=== PATIENT | female | born 1950 | race Caucasian/White ===

== ENCOUNTER → 2018-06-05 | Outpatient (CLI) | payer OTHER | LOC: BHFA 09:00 | PROVIDERS: ATTEND Internal Medicine Cardiovascular Disease | DX: R06.02 Shortness of breath (principal) | CPT/HCPCS: 78452; 93017; A9500; J2785 ==

== ENCOUNTER 2019-02-03 09:37 | Emergency (ER) | payer OTHER ==
[2019-02-03] MEDS ORDERED: NS 1,000 ML IV ONE (09:56)
[2019-02-03] MEDS ORDERED: ONDANSETRON 4 MG/2 ML VIAL IVP ONE (09:56)
--- NOTE | 2019-02-03 10:00 | EDPHY ---
H & P Stated Complaint: r facial numbness, weakness, nausea, dizziness Time Seen by Provider: 02/03/19 09:46 HPI/ROS: CHIEF COMPLAINT: Generalized weakness, dizziness, nausea HISTORY OF PRESENT ILLNESS: The patient is a 69-year-old female comes to the emergency department complaining that she has felt dizzy and weak for the last several days and that today her symptoms seem to have worsened. She describes the dizziness as a spinning sensation and states that she has trouble walking. She states that it is worse with position changes an turning her head side to side. No presyncope. No headache. No fever. No trauma. Today she states that her symptoms are worse and she feels generally weak as well. She also developed some tingling to her right cheek over last 24 hr. No speech deficits. No facial droop. No focal extremity weakness. No pain. She did have a Botox injection several months ago for occipital neuralgia on on the right side of her head. 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 Severity: Moderate Modifying factors: None REVIEW OF SYSTEMS: Constitutional: denies: chills, fever, recent illness, recent injury EENTM: denies: blurred vision, double vision, nose congestion Respiratory: denies: cough, shortness of breath Cardiac: denies: chest pain, irregular heart rate, lightheadedness, palpitations Gastrointestinal/Abdominal: denies: abdominal pain, diarrhea, nausea, vomiting, blood streaked stools Genitourinary: denies: dysuria, frequency, hematuria, pain Musculoskeletal: See HPI Skin: denies: lesions, rash, jaundice, bruising Neurological: See HPI denies: headache Hematologic/Lymphatic: denies: blood clots, easy bleeding, easy bruising Immunologic/allergic: denies: HIV/AIDS, transplant 10 systems reviewed and negative except as noted EXAM: GENERAL: Well-appearing, well-nourished and in no acute distress. HEAD: Atraumatic, normocephalic. EYES: Pupils equal round and reactive to light, extraocular movements intact, sclera anicteric, conjunctiva are normal. Minimal ptosis of right eye which is baseline. Patient has some trouble tracking my finger with her eyes but no visible nystagmus and is able to look in all directions with prompting ENT: TMs normal, nares patent, oropharynx clear without exudates. Moist mucous membranes. NECK: Normal range of motion, supple without lymphadenopathy or JVD. LUNGS: Breath sounds clear to auscultation bilaterally and equal. No wheezes rales or rhonchi. HEART: Regular rate and rhythm without murmurs, rubs or gallops. ABDOMEN: Soft, nontender, normoactive bowel sounds. No guarding, no rebound. No masses appreciated. BACK: No CVA tenderness, no spinal tenderness, step-offs or deformities EXTREMITIES: Normal range of motion, no pitting or edema. No clubbing or cyanosis. NEUROLOGICAL: Cranial nerves II through XII grossly intact. Normal speech, normal gait. 5/5 strength, normal movement in all extremities, normal sensation , normal reflexes NIH stroke score 0. No pronator drift. Normal [id number] and [id number]. PSYCH: Normal mood, normal affect. SKIN: Warm, dry, normal turgor, no visible rashes or lesions. Source: Patient Exam Limitations: No limitations - Personal History Current Tetanus/Diphtheria Vaccine: Yes Current Tetanus Diphtheria and Acellular Pertussis (TDAP): Yes - Medical/Surgical History Hx Asthma: No Hx Chronic Respiratory Disease: No Hx Diabetes: No Hx Cardiac Disease: Yes Hx Renal Disease: No Hx Cirrhosis: No Hx Alcoholism: No Hx HIV/AIDS: No Hx Splenectomy or Spleen Trauma: No Other PMH: HTN, GERD, IBS, depression, fibromyalgia, hysterectomy, partial thyroidectomy, cholecystectomy, 2 c-sections. occipital neuralgia - Family History Significant Family History: No pertinent family hx - Social History Smoking Status: Never smoked Alcohol Use: None Constitutional: Initial Vital Signs Temperature (C) 36.7 C 02/03/19 09:48 Heart Rate 65 02/03/19 09:48 Respiratory Rate 18 02/03/19 09:48 Blood Pressure 169/94 H 02/03/19 09:48 O2 Sat (%) 99 02/03/19 09:48 O2 Delivery Mode Nasal Cannula O2 (L/minute) 2 Allergies/Adverse Reactions: prednisone [Prednisone] Allergy (Severe, Verified 07/26/15 11:08) TACHYCARDIA/HYPERTENSION morphine [Morphine] Allergy (Verified 07/26/15 11:08) ALL STERIODS Allergy (Severe, Uncoded 06/02/13 10:38) TACHYCARDIA/HYPERTENSION Home Medications: Medication Instructions Recorded Levothyroxine [Synthroid 75 mcg 75 mcg PO SUTUTHSA 10/28/14 (*)] Levothyroxine [Synthroid 88 mcg 88 mcg PO MWF 10/28/14 (*)] Lisinopril/Hctz 10/12.5 mg 1 ea PO DAILY 10/28/14 [Zestoretic/Prinzide 10/12.5MG (*)] Nortriptyline HCl [Pamelor 25 mg 25 mg PO HS 10/28/14 (*)] Pravastatin Sodium [Pravachol] 40 mg PO HS 10/28/14 Venlafaxine Xr [Effexor Xr 75MG 75 mg PO DAILY 10/28/14 (*)] Venlafaxine Xr [Effexor Xr] 150 mg PO DAILY 10/28/14 Gabapentin [Neurontin 300 MG (*)] 1,200 mg PO BID 07/26/15 LORazepam [Ativan 1 mg (RX)] 1 mg PO Q6-8PRN PRN #10 tab 02/03/19 Medical Decision Making - Diagnostics EKG Interpretation: An EKG obtained and was read and documented in trace view. Please see trace view for full reading and report. Sinus rhythm, no acute ischemic changes Imaging Results: Imaging Impressions Brain MRI 02/03/19 09:56 Impression: 1. Empty pituitary sella. 2. Progression of nonspecific hyperintense T2/FLAIR signal abnormalities in the white matter of bilateral cerebral hemispheres. Differential diagnosis includes microvascular ischemic disease, post-infectious/post-inflammatory sequela, atypical demyelinating disease, or migraine-related sequela. 3. No acute infarct, hemorrhage, hydrocephalus, mass effect, or herniation. If symptoms worsen, additional imaging may be necessary. Findings discussed with Jesús Mckinley M.D. at 12:07 hour, 02/03/2019. Imaging: Discussed imaging studies w/ will call clerk Radiologist ED Course/Re-evaluation: Patient feels generally weak and dizzy and nauseous. No abdominal pain or tenderness. No focal weakness or deficits although she does have some trouble tracking with her extraocular muscles but she is able to look in all directions when encouraged. No visible nystagmus. Quite anxious. 12:15 p.m. We discussed the patient's lab work, EKG and MRI which are all reassuring. She is feeling somewhat better and is no longer nauseous. She still feels slightly dizzy and spinning sensation. NIH score remains 0. Will treat with Ativan and observe. 1:15 p.m. the patient is feeling much better after Ativan although she is sleepy. She is no longer vertiginous when sitting up or turning her head. No nystagmus on exam. She is doing better with her eye exam. Her lab work and imaging is all reassuring. She is eager to go home. I will have her follow up with ENT. She does not have any focal deficits at this time. Differential Diagnosis: Partial list of the Differential diagnosis considered include but were not limited to; anxiety, benign positional vertigo, ischemia and although unlikely based on the history and physical exam, I also considered infection, MS, tumor, acute coronary disease. I discussed these differential diagnoses and the plan with the [patient] as well as the usual and expected course. The [patient understands] that the diagnosis is provisional and that in medicine we are not always correct and that further workup is often warranted. Usual and customary warnings were given. All of the [patient's] questions were answered. The [ patient was] instructed to return to the emergency department should the symptoms at all worsen or return, otherwise to followup with the physician as we discussed. - Data Points Laboratory Results: Laboratory Results 02/03/19 09:50 02/03/19 09:50 02/03/19 02/03/19 02/03/19 10:04 09:50 09:50 WBC RBC Hgb Hct MCV MCH MCHC RDW Plt Count MPV Neut % (Auto) Lymph % (Auto) Bartholomew % (Auto) Eos % (Auto) Baso % (Auto) Nucleat RBC Rel Count Absolute Neuts (auto) Absolute Lymphs (auto) Absolute Monos (auto) Absolute Eos (auto) Absolute Basos (auto) Absolute Nucleated RBC Immature Gran % Immature Gran # PT 11.5 SEC L SEC (12.0-15.0) INR 0.87 (0.83-1.16) Sodium 139 mEq/L mEq/L (135-145) Potassium 4.0 mEq/L mEq/L (3.5-5.2) Chloride 104 mEq/L mEq/L (97-110) Carbon Dioxide 27 mEq/l mEq/l (22-31) Anion Gap 8 mEq/L mEq/L (6-14) BUN 15 mg/dL mg/dL (7-23) Creatinine 0.6 mg/dL mg/dL (0.6-1.0) Estimated GFR > 60 Glucose 92 mg/dL mg/dL (70-100) Calcium 9.8 mg/dL mg/dL (8.5-10.4) POC Troponin I 0.00 ng/mL ng/mL (0.00-0.08) 02/03/19 09:50 WBC 4.26 10^3/uL 10^3/uL (3.80-9.50) RBC 4.53 10^6/uL 10^6/uL (4.18-5.33) Hgb 14.1 g/dL g/dL (12.6-16.3) Hct 41.6 % % (38.0-47.0) MCV 91.8 fL fL (81.5-99.8) MCH 31.1 pg pg (27.9-34.1) MCHC 33.9 g/dL g/dL (32.4-36.7) RDW 12.9 % % (11.5-15.2) Plt Count 258 10^3/uL 10^3/uL (150-400) MPV 9.9 fL fL (8.7-11.7) Neut % (Auto) 62.0 % % (39.3-74.2) Lymph % (Auto) 26.1 % % (15.0-45.0) Bartholomew % (Auto) 7.7 % % (4.5-13.0) Eos % (Auto) 3.1 % % (0.6-7.6) Baso % (Auto) 0.9 % % (0.3-1.7) Nucleat RBC Rel Count 0.0 % % (0.0-0.2) Absolute Neuts (auto) 2.64 10^3/uL 10^3/uL (1.70-6.50) Absolute Lymphs (auto) 1.11 10^3/uL 10^3/uL (1.00-3.00) Absolute Monos (auto) 0.33 10^3/uL 10^3/uL (0.30-0.80) Absolute Eos (auto) 0.13 10^3/uL 10^3/uL (0.03-0.40) Absolute Basos (auto) 0.04 10^3/uL 10^3/uL (0.02-0.10) Absolute Nucleated RBC 0.00 10^3/uL 10^3/uL (0-0.01) Immature Gran % 0.2 % % (0.0-1.1) Immature Gran # 0.01 10^3/uL 10^3/uL (0.00-0.10) PT INR Sodium Potassium Chloride Carbon Dioxide Anion Gap BUN Creatinine Estimated GFR Glucose Calcium POC Troponin I Medications Given: Discontinued Medications Sodium Chloride (Ns) 1,000 mls @ 0 mls/hr IV ONCE ONE; Wide Open PRN Reason: Protocol Stop: 02/03/19 09:57 Last Admin: 02/03/19 10:13 Dose: 1,000 mls Lorazepam (Ativan Injection) 1 mg IVP EDNOW ONE Stop: 02/03/19 12:15 Last Admin: 02/03/19 12:17 Dose: 1 mg Ondansetron HCl (Zofran) 4 mg IVP EDNOW ONE Stop: 02/03/19 09:57 Last Admin: 02/03/19 10:14 Dose: 4 mg Point of Care Test Results: Chemistry 02/03/19 10:04 POC Troponin I 0.00 ng/mL ng/mL (0.00-0.08) Departure - Departure Disposition: Home, Routine, Self-Care Clinical Impression: Vertigo Condition: Fair Instructions: Vertigo (ED) Referrals: Dean Murphy MD [Primary Care Provider] - As per Instructions Cherelle Conner MD [Medical Doctor] - 2-3 days, call for appt. Prescriptions: LORazepam [Ativan 1 mg (RX)] 1 mg PO Q6-8PRN PRN #10 tab PRN Reason: Vertigo
[2019-02-03 10:07] LABS: PLATELET COUNT 258 10^3/uL (150-400)
--- NOTE | 2019-02-03 10:08 | CPEKG ---
Test Reason : OPEN Blood Pressure : / mmHG Vent. Rate : 063 BPM Atrial Rate : 064 BPM P-R Int : 187 ms QRS Dur : 098 ms QT Int : 441 ms P-R-T Axes : 033 -21 014 degrees QTc Int : 452 ms Sinus rhythm Borderline left axis deviation Confirmed by Michele Vidal ([id number]) on 02/03/2019 10:08:06 AM Referred By: MICHELE VIDAL Confirmed By:Michele Vidal
[2019-02-03 10:19] LABS: INR 0.87 (0.83-1.16); PROTIME(PATIENT) 11.5 SEC (12.0-15.0)
[2019-02-03] MEDS ORDERED: LORazepam 2 MG/ML INJ IVP ONE (12:14)
[2019-02-03 13:11] VITALS: BP 123/87
== END 2019-02-03 13:31 | disposition home or self-care (01) ==
DX: R42 Dizziness and giddiness (principal); I10 Essential (primary) hypertension; E86.9 Volume depletion, unspecified
CPT/HCPCS: 70551; 93005; 96361; 96374; 96375; 99285; J2060; J2405; 84484-ER